=== PATIENT | male | born 1945 | race Caucasian/White ===

== ENCOUNTER → 2018-04-22 | Outpatient (CLI) | payer OTHER | END | disposition home or self-care (01) | LOC: LAB SHORT 15:17 → LAB EV 15:17 | DX: S51.001A Unspecified open wound of right elbow, initial encounter (principal) | CPT/HCPCS: 87070; 87077; 87186; 87205 ==

== ENCOUNTER → 2018-05-28 | Outpatient (CLI) | payer OTHER | END | disposition home or self-care (01) | LOC: LAB SHORT 15:54 → LAB EV 15:54 | DX: L02.413 Cutaneous abscess of right upper limb (principal) | CPT/HCPCS: 87070; 87075; 87205 ==

== ENCOUNTER → 2021-06-03 | Outpatient (CLI) | payer OTHER ==
[2021-06-04 08:45] LABS: Stool Occult Bld Immuno 1 Negative (NEGATIVE)
== END | disposition home or self-care (01) ==
LOC: LAB SHORT 07:45
PROVIDERS: Family Medicine
DX: Z12.11 Encounter for screening for malignant neoplasm of colon (principal)
CPT/HCPCS: G0328

== ENCOUNTER → 2022-08-04 | Outpatient (CLI) | payer MEDICARE | LOC: LAB SHORT 11:02 → PLD 11:02 | DX: D48.5 Neoplasm of uncertain behavior of skin (principal) | CPT/HCPCS: 88305 ==

== ENCOUNTER 2024-10-07 11:15 | Day surgery (SDC) | payer OTHER ==
[~2024-10-07] VITALS: Ht 167.6 cm; Wt 75.2 kg
[2024-10-07] MEDS ORDERED: CeFAZolin Sodium 2,000 MG VIAL ONE (11:22)
[2024-10-07] MEDS ORDERED: CefTRIAXone Sodium 2,000 MG in NS 100 ML IV SCH (11:35)
[2024-10-07] MEDS ORDERED: NS 1,000 ML IV ONE (11:53)
--- NOTE | 2024-10-07 12:48 | NUR ---
10/07/24 1248 TOYIN ABEL T/ FOR BLOCK RIGHT HAND 1226 START BLOCK 1227 END BLOCK 1228 10ML LIDOCAINE 1% W/ EPI
--- NOTE | 2024-10-07 13:12 | NUR ---
10/07/[address] AT BEDSIDE TO VISIT W/ PT AT THIS TIME.
[2024-10-07 13:43] VITALS: BP 134/84
== END 2024-10-07 13:40 | disposition home or self-care (01) ==
LOC: ORSCSDS 11:15
PROVIDERS: Orthopaedic Surgery
PROC: 01N50ZZ Release Median Nerve, Open Approach (ICD-10-PCS; principal; 2024-10-07 12:45)
DX: G56.01 Carpal tunnel syndrome, right upper limb (principal)
CPT/HCPCS: J0690; J0696